=== PATIENT | male | born 1950 | race Caucasian/White ===

== ENCOUNTER 2019-04-11 10:19 | Emergency (ER) | payer MEDICARE, BC ==
[2019-04-11 11:28] VITALS: BP 115/75
--- NOTE | 2019-04-11 11:31 | UC ---
General HPI - HPI Summary HPI Summary: 68 yo male presents with concerns about lyme disease. He tells me that over the past week he has noticed intermittent joint aches, headaches, fatigue, and feeling feverish (has not taken his temperature). He recalls having lyme disease in 2007 and feeling similar - he was treated at that time and symptoms resolved. 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 He denies dizziness, SOB, chest pain, abdominal pain, n/v, or rash - History of Current Complaint Chief Complaint: UCGeneralIllness Stated Complaint: TICK BITE Time Seen by Provider: 04/11/19 11:31 Hx Obtained From: Patient Current Severity: None Pain Intensity: 0 - Allergy/Home Medications Allergies/Adverse Reactions: Allergies Allergy/AdvReac Type Severity Reaction Status Date / Time No Known Allergies Allergy Verified 04/11/19 11:20 PMH/Surg Hx/FS Hx/Imm Hx Cardiovascular History: Cardiac Disease Respiratory History: Asthma - Surgical History Surgical History: Yes Surgery Procedure, Year, and Place: CARDIAC CATH 1996 - NO STENT - Family History Known Family History: Positive: Non-Contributory - Social History Lives: With Family Alcohol Use: Occasionally Alcohol Amount: 1-2x/week Substance Use Type: None Smoking Status (MU): Never Smoked Tobacco Review of Systems All Other Systems Reviewed And Are Negative: No Constitutional: Positive: Fatigue, Other - Joint aches Respiratory: Positive: Negative Cardiovascular: Positive: Negative Gastrointestinal: Positive: Negative Neurovascular: Positive: Negative Musculoskeletal: Positive: Negative Neurological: Positive: Headache Psychological: Positive: Negative Physical Exam - Summary Physical Exam Summary: GENERAL: NAD. WDWN. No pain distress. SKIN: No rashes, sores, lesions, or open wounds. HEENT: Head: AT/NC Eyes: EOM intact. Conjunctiva clear without inflammation or discharge. Ears: Hearing grossly normal. TMs intact, no bulging, erythema, or edema. Nose: Nasal mucosa pink and moist. NTTP maxillary and frontal sinus. Throat: Posterior oropharynx without exudates, erythema, or tonsillar enlargement. Uvula midline. NECK: Supple. Nontender. No lymphadenopathy. CHEST: CTAB. No accessory muscle use. Breathing comfortably and in no distress. CV: RRR. Pulses intact. Cap refill <2seconds ABDOMEN: Soft. NTTP. Bowel sounds present NEURO: Alert. PSYCH: Age appropriate behavior. Triage Information Reviewed: Yes Vital Signs: Initial Vital Signs Temp 97.3 F 04/11/19 11:22 Pulse 53 04/11/19 11:22 Resp 18 04/11/19 11:22 BP 115/75 04/11/19 11:22 Pulse Ox 99 04/11/19 11:22 Vital Signs Reviewed: Yes Course/Dx - Course Course Of Treatment: Discussed with pt testing and treated based on results OR beginning treatment now and changing treatment prn results. He prefers to start treatment for lyme disease now and will stop anbx if lyme is negative and f/u with his PCP - Diagnoses Provider Diagnosis: Joint ache, Fatigue Discharge ED - Sign-Out/Discharge Documenting (check all that apply): Patient Departure All imaging exams completed and their final reports reviewed: No Studies - Discharge Plan Condition: Stable Disposition: HOME Prescriptions: DOXYcycline CAP(*) [DOXYcycline 100MG CAP(*)] 100 mg PO BID #28 cap Patient Education Materials: Doxycycline (By mouth), Lyme Disease (ED), Tick Bite (ED) Referrals: Sekou Rooney MD [Primary Care Provider] - Additional Instructions: If you develop a fever, shortness of breath, chest pain, new or worsening symptoms - please call your PCP or go to the ED immediately. Your were tested for lyme disease today. Results should return in a few days You are also being treated for lyme disease with doxycycline, please take this antibiotic as directed - Billing Disposition and Condition Condition: STABLE Disposition: Home
[2019-04-11 17:49] LABS: ABS Lymphocytes 0.8 10^3/ul (1.0-4.8); ABS Monocytes 0.6 10^3/ul (0-0.8); ABS Neutrophils 2.2 10^3/ul (1.5-7.7); Eosinophil % 0.8 %; Hematocrit 47 % (42-52); Hemoglobin 16.1 g/dL (14.0-18.0); Lymphocyte % 21.2 %; Mean Corpuscular HGB Conc 35 g/dL (31-36); Mean Corpuscular Hemoglobin 32 pg (27-31); Mean Corpuscular Volume 94 fL (80-94); Mean Platelet Volume 9.7 fL (7.4-10.4); Nucleated Red Blood Cells % 0.1; Platelet Count 149 10^3/uL (150-450); Red Blood Count 4.99 10^6 /uL (4.18-5.48); Red Cell Distribution Width 12 % (10-15); White Blood Count 3.6 10^3/uL (3.5-10.8)
--- NOTE | 2019-04-12 07:21 | UC ---
- Progress Note Progress Note: PROGRESS NOTE: 04/12/19 LAB RESULTS: CBC results shows minimally deviated values for MCH, platelet count at 149, and absolute lymphs at 0.8. Lyme titer has not returned yet. MDM:laboratory results are probably within normal limits. Call the patient and have him follow-up with his physician if he has continued symptoms. Lyme titer is pending. Cortes Lucero MD Course/Dx - Diagnoses Provider Diagnoses: Joint ache, Fatigue Discharge ED - Sign-Out/Discharge Documenting (check all that apply): Post-Discharge Follow Up All imaging exams completed and their final reports reviewed: No Studies - Discharge Plan Condition: Stable Disposition: HOME Prescriptions: DOXYcycline CAP(*) [DOXYcycline 100MG CAP(*)] 100 mg PO BID #28 cap Patient Education Materials: Doxycycline (By mouth), Lyme Disease (ED), Tick Bite (ED) Referrals: Sekou Rooney MD [Primary Care Provider] - Additional Instructions: If you develop a fever, shortness of breath, chest pain, new or worsening symptoms - please call your PCP or go to the ED immediately. Your were tested for lyme disease today. Results should return in a few days You are also being treated for lyme disease with doxycycline, please take this antibiotic as directed - Billing Disposition and Condition Condition: STABLE Disposition: Home
== END 2019-04-11 11:50 | disposition home or self-care (01) ==
LOC: UCEAST 10:19
DX: M25.50 Pain in unspecified joint (principal); R51 Headache; R53.83 Other fatigue; J45.909 Unspecified asthma, uncomplicated
CPT/HCPCS: 36415; 85025; 86618; 99212; G0463